=== PATIENT | female | born 1985 | race Caucasian/White ===

== ENCOUNTER 2020-04-26 05:02 | Emergency (ER) | payer SELFPAY ==
[~2020-04-26] VITALS: Ht 170.2 cm; Wt 61.2 kg
[2020-04-26] MEDS ORDERED: METRONIDAZOLE500 MG ORAL (05:11)
[2020-04-26] MEDS ORDERED: IBUPROFEN600 M1 ORAL (05:11)
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
[2020-04-26 05:14] VITALS: BP 121/82
== END 2020-04-26 05:14 ==
LOC: EMR 05:10
DX: S00.83XA Contusion of other part of head, initial encounter (principal); Y04.2XXA Assault by strike against or bumped into by another person, initial encounter; Y92.9 Unspecified place or not applicable; R19.7 Diarrhea, unspecified
CPT/HCPCS: 99282